=== PATIENT | female | born 1970 | race Two or more races ===

== ENCOUNTER 2025-06-27 08:00 | Outpatient (RCR) | payer MEDICAID, SELFPAY ==
--- NOTE | 2025-06-13 08:55 | PT.OIERPT ---
PT OP Initial Eval Patient Information Outpatient Physical Therapy Treatment Date: 06/13/25 Visit Reasons: vertigo Medical Diagnosis: H81.13 Treatment Dx #1: BPPV Date of Onset: 1 yr ago Smoking Status Smoking Status: Never smoker Initial Assessment Subjective: Pt is 55 yr old female who c/o dizziness x1 yr. It hits her and feels like the room wants to spin but it doesn't. This happens randomly in sitting and standing and sometimes laying down. PMH: HTN Pt goal; to get rid of the dizziness Objective: Amanda-Hallpike to R: negative to the L: positive for what could be horizontal nystagmus Smooth pursuit: jerky Visual tracking: WNL C/S ArOM: slight dizziness with extension and flexion but no significant ROM deficits. Assessment: Pt presentation consistent with possible BPPV of L ear with positive horizontal nystagmus observed to that side. Her ssx were provoked with Amanda-Hallpike testing to the L today and she was given printout of L Luna maneuver.? Pt has good rehab potential with attainable functional improvement. Short Term and Correction Goals 1. Ind with HEP 2. Reduced dizziness ssx by 75% with supine to sit transfers 3. Pt will report 50% less onset of dizziness. Treatment Plan 1. Therex 2. Manual therapy including Luna maneuvers 3. Modalities as indicated Frequency and Duration: 2x a week for 6 weeks Certification Dates: 06/03/25 to 08/31/25 Procedure Charges OP PT Eval Mod Complex 30 minutes: Yes
--- NOTE | 2025-06-20 08:56 | PT.ODAYNRPT ---
PT Outpatient Daily Note OP Daily Note Outpatient Physical Therapy Treatment Date: 06/20/25 Visit Reasons: vertigo Subjective: A little dizziness with laying down with the head turned to the L Objective: Luna x3 to the L Assessment: Mild dizziness but no nystagmus with L Luna maneuvers today Plan: Continue per POC Length of Time (minutes) of Treatment: 30 Minutes Procedure Charges Therapeutic Exercise 30 minutes: Yes
--- NOTE | 2025-06-27 14:02 | PT.ODAYNRPT ---
PT Outpatient Daily Note OP Daily Note Outpatient Physical Therapy Treatment Date: 06/27/25 Visit Reasons: vertigo Subjective: A little dizziness with laying down with the head turned to the R Objective: Luna x3 to the R Assessment: Mild dizziness and mild nystagmus with R Luna maneuvers today Plan: Continue per POC Length of Time (minutes) of Treatment: 30 Minutes Procedure Charges Therapeutic Exercise 30 minutes: Yes
== END 2025-06-27 23:59 | disposition home or self-care (01) ==
LOC: CPTX 08:00
PROVIDERS: PCP Otolaryngology; Referring Provider Otolaryngology; Visit Provider Otolaryngology
DX: R42 Dizziness and giddiness (principal); I10 Essential (primary) hypertension
CPT/HCPCS: 97110; 97162

== ENCOUNTER 2025-07-24 08:30 | Outpatient (RCR) | payer MEDICAID, SELFPAY ==
--- NOTE | 2025-07-03 10:43 | PT.ODAYNRPT ---
PT Outpatient Daily Note OP Daily Note Outpatient Physical Therapy Treatment Date: 07/03/25 Visit Reasons: vertigo Subjective: She got dizzy a couple days ago sitting watching a sports game Objective: Luna x3 to the R and BBQ to the R Assessment: Dizziness seems to be related to eye movement side to side. Unclear if Luna maneuver is helping reduce frequency of dizziness Plan: Continue per POC Length of Time (minutes) of Treatment: 30 Minutes Procedure Charges Therapeutic Exercise 30 minutes: Yes
--- NOTE | 2025-07-10 08:55 | PT.ODAYNRPT ---
PT Outpatient Daily Note OP Daily Note Outpatient Physical Therapy Treatment Date: 07/10/25 Visit Reasons: vertigo Subjective: Less dizziness with HEP of Luna to the R Objective: Luna x3 to the R Assessment: Dizziness seems to be related to eye movement side to side. Unclear if Luna maneuver is helping reduce frequency of dizziness Plan: Continue per POC Length of Time (minutes) of Treatment: 30 Minutes Procedure Charges Therapeutic Exercise 30 minutes: Yes
--- NOTE | 2025-07-24 14:36 | PT.ODS1RPT ---
PT OP Progress/Discharge Note Date of Service: 07/24/25 Progress Note/DC Note Progress Note/Discharge Note: DC Note Patient Information Visit Reasons: vertigo Service Continue Service or Discharge: Discharge Discharge Date: 07/24/25 Status Subjective: Pt reports continued dizziness episodes and that she feels relief with the HEP of Luna maneuver to the R. Objective: Luna maneuver x3 head to the R Amanda-Hallpike to the R: negative Assessment: Pt has attended the eval and 02/06 visits with good progress with therapy goals. Pt has good demonstration and response to Luna maneuver to the R for relief for the rest of the day and then the dizziness returns. She is independent with HEP and doing it at home to help control dizziness. She has met that goal and also the goal of reduced dizziness by 75% with supine to sit transfers and 50% less onset of dizziness. Plan: D/C with HEP Procedure Charges Therapeutic Exercise 30 minutes: Yes
== END 2025-07-28 23:59 | disposition home or self-care (01) ==
LOC: CPTX 08:30
PROVIDERS: PCP Otolaryngology; Referring Provider Otolaryngology; Visit Provider Otolaryngology
DX: H81.13 Benign paroxysmal vertigo, bilateral (principal)
CPT/HCPCS: 97110